=== PATIENT | female | born 1960 | race Caucasian/White ===

== ENCOUNTER → 2016-05-16 | Outpatient (CLI) | payer MEDICAID | LOC: LAB 13:04 | DX: E83.19 Other disorders of iron metabolism (principal); D25.1 Intramural leiomyoma of uterus; R09.02 Hypoxemia ==

== ENCOUNTER → 2018-12-23 | Outpatient (CLI) | payer MEDICAID | LOC: MAMMO 08:51 | DX: Z12.31 Encounter for screening mammogram for malignant neoplasm of breast (principal) ==

== ENCOUNTER → 2019-11-29 | Day surgery (SDC) | payer MEDICAID | LOC: MSO 07:02 | DX: D12.3 Benign neoplasm of transverse colon (principal); D12.5 Benign neoplasm of sigmoid colon; F41.9 Anxiety disorder, unspecified; Z88.0 Allergy status to penicillin; Z79.899 Other long term (current) drug therapy; Z79.891 Long term (current) use of opiate analgesic | CPT/HCPCS: 00811; J2704; J7120 ==

== ENCOUNTER → 2020-02-03 | Outpatient (CLI) | payer MEDICAID | LOC: MAMMO 08:53 | DX: Z12.31 Encounter for screening mammogram for malignant neoplasm of breast (principal) ==

== ENCOUNTER → 2020-05-08 | Outpatient (CLI) | payer MEDICAID | LOC: LAB 09:34 | DX: E55.9 Vitamin D deficiency, unspecified (principal) ==

== ENCOUNTER → 2021-04-10 | Outpatient (CLI) | payer MEDICAID | LOC: MAMMO 12:38 | DX: Z12.31 Encounter for screening mammogram for malignant neoplasm of breast (principal) ==

== ENCOUNTER → 2022-05-22 | Outpatient (CLI) | payer MEDICAID | LOC: MAMMO 13:43 | DX: Z12.31 Encounter for screening mammogram for malignant neoplasm of breast (principal) ==

== ENCOUNTER → 2023-05-27 | Outpatient (CLI) | payer MEDICAID ==
[~2023-05-27] MED LIST: ATROVENT NASAL15 ML NS; CELECOXIB200 M1 PO; CEPHALEXIN500 M1 PO; IPRATROPIUM BROM3 M1 IH; KLONOPIN 1MG1 MG PO; LAMOTRIGINE100 M3 PO; PRILOSEC 20MG20 MG PO; RISPERIDONE3 M2 PO; RT SPIRIVA INH18 MCG IH; SERTRALINE HYD100 MG PO
== END ==
LOC: MAMMO 10:04
DX: Z12.31 Encounter for screening mammogram for malignant neoplasm of breast (principal)

== ENCOUNTER → 2023-06-02 | Outpatient (CLI) | payer MEDICAID | LOC: RAD 07:11 | DX: N60.02 Solitary cyst of left breast (principal) ==

== ENCOUNTER → 2024-06-10 | Day surgery (SDC) | payer MEDICARE, MEDICAID ==
[~2024-06-10] MED LIST changes: +Balanced Salt Ophth Irrig 15 ML BOTTLE *BULK OP SCH; +Cyclopentolate 2% Ophth Soln 1 BOTTLE *BULK OP SCH; +EPINEPHrine 1 MG/ML (1:1000) 1 ML AMP IR SCH; +Ketorolac 0.5% Ophth Soln 5 ML Bottle *BULK OP SCH; +Midazolam 2 MG/2 ML VIAL IV ONE; +Phenylephrine 10% Ophth Soln 5 ML BOTTLE *BULK OP SCH; +Polymyxin B Sulfate/Trimethoprim Ophth Soln 10 ML BOTTLE *BULK OP SCH; +Proparacaine 0.5% Ophth Soln 15 ML BOTTLE *BULK OP SCH; +Tropicamide 1% Ophth Soln Bottle *BULK OP SCH
== END | disposition home or self-care (01) ==
LOC: MSO 05-06 14:36
DX: H25.813 Combined forms of age-related cataract, bilateral (principal)
CPT/HCPCS: 00142; J0171; J2250; V2632

== ENCOUNTER → 2024-08-10 | Outpatient (CLI) | payer MEDICARE, MEDICAID ==
[~2024-08-10] MED LIST changes: -Balanced Salt Ophth Irrig 15 ML BOTTLE *BULK OP SCH; -Cyclopentolate 2% Ophth Soln 1 BOTTLE *BULK OP SCH; -EPINEPHrine 1 MG/ML (1:1000) 1 ML AMP IR SCH; -Ketorolac 0.5% Ophth Soln 5 ML Bottle *BULK OP SCH; -Midazolam 2 MG/2 ML VIAL IV ONE; -Phenylephrine 10% Ophth Soln 5 ML BOTTLE *BULK OP SCH; -Polymyxin B Sulfate/Trimethoprim Ophth Soln 10 ML BOTTLE *BULK OP SCH; -Proparacaine 0.5% Ophth Soln 15 ML BOTTLE *BULK OP SCH; -Tropicamide 1% Ophth Soln Bottle *BULK OP SCH
== END ==
LOC: RAD 07:42
DX: N60.02 Solitary cyst of left breast (principal)